=== PATIENT | female | born 1995 | race Caucasian/White ===

== ENCOUNTER 2018-04-02 12:25 | Emergency (ER) | payer OTHER ==
[~2018-04-02] VITALS: Ht 175.2 cm; Wt 72.6 kg
[~2018-04-02 12:25] MED LIST: BACTRIM DS 8001 TA1 PO; BIRTH CONTROL1 EAC1 PO; CYCLOBENZAPRINE10 MG PO; IBUPROFEN600 MG PO; MOTRIN800 MG PO; Motrin,Rufen800 MG PO; NKHM; OMNICEF300 MG PO; PYRIDIUM200 MG PO; TYLENOL W/CODEI1 TA2 PO
[2018-04-02 12:49] LABS: BILIRUBIN NEGATIVE (NEGATIVE); BLOOD NEGATIVE (NEGATIVE); CLARITY SL CLOUDY (CLEAR); COLOR YELLOW (YELLOW); GLUCOSE NEGATIVE (NEGATIVE); KETONE NEGATIVE (NEGATIVE); LEUKO ESTERASE NEGATIVE (NEGATIVE); NITRITE NEGATIVE (NEGATIVE); PH 5.5 (5.0-9.0); UROBILINOGEN 0.2 E.U./dl (0.2-1.0)
[2018-04-02 12:51] LABS: BASO % 0.2 % (0.0-1.0); EOS # 0.2 10*3/uL (0.0-0.4); EOS % 1.8 % (1.0-4.0); HEMATOCRIT 43.5 % (37.0-47.0); HEMOGLOBIN 14.6 g/dl (12.0-16.0); LYMPH # 0.7 10*3/uL (1.3-4.4); LYMPH % 7.3 % (27.0-41.0); MEAN CELL VOLUME 90.4 fl (81.0-99.0); MEAN CORPUSCULAR HGB 30.4 pg (27.0-31.0); MEAN CORPUSCULAR HGB CONC 33.6 g/dl (33.0-37.0); MEAN PLATELET VOLUME 9.9 fl (9.6-12.3); MONO # 0.5 10*3/uL (0.1-1.0); MONO % 5.4 % (3.0-9.0); NEUT # 8.2 10*3/uL (2.3-7.9); NEUT % 85.1 % (47.0-73.0); PLATELET COUNT AUTOMATED 235 10*3/uL (130-400); RED BLOOD COUNT 4.81 10*6/uL (4.10-5.10); RED CELL DISTRI WIDTH 12.3 % (0-14.5); WHITE BLOOD COUNT 9.6 10*3/uL (4.8-10.8)
[2018-04-02 13:02] LABS: BACTERIA 2+
[2018-04-02 13:08] LABS: ALKALINE PHOSPHATASE 66 U/L (45-117); BUN 17 mg/dl (7-24); CHLORIDE 109 mmol/L (98-107); CREATININE 0.85 mg/dL (0.55-1.02); LIPASE 61 U/L (73-393); SGOT/AST 17 IU/L (3-35); SGPT/ALT 24 U/L (12-78); SODIUM 140 mmol/L (136-145); TOTAL PROTEIN 7.8 gm/dL (6.4-8.2)
[2018-04-02 14:55] VITALS: BP 121/78
[2018-04-02] MEDS ORDERED: ZOFRAN4 MG PO (16:19)
== END 2018-04-02 16:23 | disposition home or self-care (01) ==
LOC: ED 12:25
PROVIDERS: Nurse Practitioner Family
DX: R10.31 Right lower quadrant pain (principal); R11.2 Nausea with vomiting, unspecified; R10.33 Periumbilical pain; Z91.013 Allergy to seafood

== ENCOUNTER → 2019-08-04 | Outpatient (CLI) | payer OTHER ==
[~2019-08-04] MED LIST changes: +ZOFRAN4 MG PO
== END | disposition home or self-care (01) ==
LOC: RAD 17:16
DX: M25.571 Pain in right ankle and joints of right foot (principal)

== ENCOUNTER → 2020-02-01 | Outpatient (CLI) | payer OTHER | END | disposition home or self-care (01) | LOC: COVID19 11:44 | PROVIDERS: ATTEND Internal Medicine | DX: Z20.828 Contact with and (suspected) exposure to other viral communicable diseases (principal) ==

== ENCOUNTER → 2020-02-05 | Outpatient (CLI) | payer OTHER | END | disposition home or self-care (01) | LOC: COVID19 12:23 | PROVIDERS: ATTEND Internal Medicine | DX: Z20.828 Contact with and (suspected) exposure to other viral communicable diseases (principal) ==

== ENCOUNTER → 2020-02-05 | Outpatient (CLI) | payer OTHER | END | disposition home or self-care (01) | LOC: RESCLI 11:42 | PROVIDERS: ATTEND Internal Medicine | DX: J20.8 Acute bronchitis due to other specified organisms (principal) ==

== ENCOUNTER 2021-11-07 22:45 | Emergency (ER) | payer OTHER ==
[~2021-11-07] VITALS: Ht 172.7 cm; Wt 97.2 kg
== END 2021-11-08 00:22 | disposition home or self-care (01) ==
LOC: ED 22:45
DX: K90.49 Malabsorption due to intolerance, not elsewhere classified (principal); Z91.013 Allergy to seafood

== ENCOUNTER → 2022-10-15 | Outpatient (CLI) | payer BC | END | disposition home or self-care (01) | LOC: RAD 15:45 | PROVIDERS: ATTEND Chiropractor | DX: M54.50 Low back pain, unspecified (principal) ==